=== PATIENT | female | born 1975 | race Hispanic/Latino ===

== ENCOUNTER 2018-08-20 13:43 | Observation (INO) | payer OTHER ==
[~2018-08-20] VITALS: Ht 160 cm; Wt 82.1 kg
[2018-08-20] MEDS ORDERED: MORPHINE SULFATE 2 MG/ML SYR IV STA (14:52)
[2018-08-20] MEDS ORDERED: ONDANSETRON HCL INJ 2 MG/ML VIAL IV STA (14:52)
[2018-08-20] MEDS ORDERED: SODIUM CHLORIDE 0.9% 1000ML 1,000 ML IV SCH (15:00)
[2018-08-20 15:28] LABS: BASOPHILS % 0.2 % (0.0-1.0); EOSINOPHILS % 0.3 % (0.0-6.0); HEMATOCRIT 34.8 % (34.2-44.1); HEMOGLOBIN 11.2 g/dL (12.0-16.0); LYMPHOCYTES # (AUTO) 1.2 (1.0-3.2); LYMPHOCYTES % 10.4 % (18.0-39.1); MEAN CORPUSCULAR HEMOGLOBIN 27.9 pg (28-32); MEAN CORPUSCULAR HGB CONC 32.2 g/dL (31-35); MEAN CORPUSCULAR VOLUME 86.8 fL (81-99); MONOCYTES # (AUTO) 0.9 (0.2-0.8); MONOCYTES % 7.3 % (4.4-11.3); NEUTROPHILS # (AUTO) 9.6 (2.1-6.9); NEUTROPHILS % 81.5 % (38.7-80.0); PLATELET COUNT 211 x10e3/uL (140-360); RED BLOOD COUNT 4.01 x10e6/uL (3.6-5.1); RED CELL DISTRIBUTION WIDTH 14.1 % (11.7-14.4)
[2018-08-20 15:32] LABS: CLARITY,URINE SL CLOUDY (CLEAR); COLOR,URINE YELLOW (YELLOW); KETONES,URINE 1+ (NEGATIVE); LEUKOCYTE ESTERASE ,URINE NEGATIVE (NEGATIVE); NITRITE,URINE NEGATIVE (NEGATIVE); PROTEIN,URINE DIPSTICK NEGATIVE (NEGATIVE)
[2018-08-20 15:33] LABS: BILIRUBIN,URINE NEGATIVE (NEGATIVE); URINE UROBILINOGEN 0.2 mg/dL (0.2 - 1)
[2018-08-20 15:41] LABS: BACTERIA,URINE MODERATE /HPF; EPITHELIAL CELLS,URINE MANY /LPF; TRANSITIONAL EPI CELLS,URINE MODERATE
[2018-08-20 15:46] LABS: ALBUMIN 3.9 g/dL (3.5-5.0); ALBUMIN/GLOBULIN RATIO 1.1 (0.8-2.0); ANION GAP 15.9 mmol/L (8-16); CALCIUM 9.4 mg/dL (8.4-10.2); CREATININE, SERUM 1.16 mg/dL (0.57-1.11); POTASSIUM 3.9 mmol/L (3.5-5.1)
[2018-08-20] MEDS ORDERED: ONDANSETRON HCL INJ 2 MG/ML VIAL IV PRN (16:00)
[2018-08-20] MEDS ORDERED: MORPHINE SULFATE 2 MG/ML SYR IV PRN (16:00)
[2018-08-20] MEDS ORDERED: HYDROMORPHONE 1MG/1ML INJ IV PRN (16:00)
[2018-08-20] MEDS ORDERED: MORPHINE SULFATE INJ 4 MG/ML INJ IV PRN (16:15)
[2018-08-20] MEDS: HYDROMORPHONE 2MG/ML 2 MG/ML ML IV PRN ×3 (16:50→21:36)
[2018-08-20] MEDS: CEFTRIAXONE SOD 1 GM VIAL IV SCH (16:51)
[2018-08-20] MEDS ORDERED: NORCO 7.5-3251 EACH PO (16:55)
[2018-08-20] MEDS ORDERED: DOXYCYCLINE HY100 MG PO (16:55)
[2018-08-20] MEDS ORDERED: ZYRTEC10 M3 PO (16:55)
[2018-08-20] MEDS ORDERED: ZOFRAN ODT4 MG PO (16:55)
--- NOTE | 2018-08-20 16:56 | Diagnostic Imaging Report ---
Exam: KUB. Clinical History: Kidney stone. Comparison: <None.> Findings: There is a 7 mm calcification projecting over the left upper psoas muscle. Bowel gas obscures visualization of the left kidney. No evidence of right renal stone. Frontal view of the abdomen demonstrates a nonobstructive bowel gas pattern. Moderate amount of stool in the proximal colon. No acute bony findings. Impression: Possible 7 mm left proximal ureteral stone. Signed by: Dr. Alonzo Flowers MD on 08/20/2018 4:52 PM
[2018-08-20] MEDS: SODIUM CHLORIDE 0.9% 1000ML 1,000 ML IV SCH ×2 (18:07→21:19)
[2018-08-20] MEDS ORDERED: PANTOPRAZOLE 40 MG 10ML VIAL IV STA (18:13)
[2018-08-20] MEDS ORDERED: LORAZEPAM 1 MG TAB PO ONE (18:15)
[2018-08-20] MEDS ORDERED: MIDAZOLAM HCL 2 MG/2 ML VIAL ONE (19:22)
[2018-08-20] MEDS ORDERED: FENTANYL CITRATE/PF 100MCG/2 ML INJ ONE (19:22)
[2018-08-20] MEDS ORDERED: DIPHENHYDRAMINE HCL INJ 50 MG/ML VIAL ONE (19:41)
[2018-08-20] MEDS ORDERED: LIDOCAINE HCL 2% LOCAL INJ 5 ML SDV VIAL INJ ONE (19:41)
[2018-08-20] MEDS ORDERED: PROPOFOL IV EMULSION 10 MG/ML 20 ML VIAL ONE (19:41)
[2018-08-20] MEDS ORDERED: FAMOTIDINE 20 MG/2 ML VIAL IV ONE (19:41)
[2018-08-20] MEDS ORDERED: SEVOFLURANE INHAL SOLN 250 ML PEN BTL ONE (19:41)
[2018-08-20] MEDS ORDERED: DEXAMETHASONE SOD PHOS INJ 4 MG/ML VIAL ONE (19:41)
[2018-08-20] MEDS ORDERED: ONDANSETRON HCL INJ 2 MG/ML VIAL ONE (19:41)
[2018-08-20 21:30] VITALS: BP 112/69
[2018-08-20 21:53] VITALS: BP 102/64
[2018-08-20 21:55] VITALS: BP 102/64
[2018-08-21] VITALS: BP 104/55
[2018-08-21] MEDS: HYDROMORPHONE 2MG/ML 2 MG/ML ML IV PRN ×3 (00:45→06:45)
[2018-08-21] MEDS: CEFTRIAXONE SOD 1 GM VIAL IV SCH ×2 (03:39→16:40)
[2018-08-21 04:00] VITALS: BP 97/80
[2018-08-21 07:50] VITALS: BP 105/60
[2018-08-21] MEDS ORDERED: IOPAMIDOL 610MG/1ML 300 MG/ML VIAL IV ONE (08:33)
[2018-08-21 08:34] VITALS: BP 105/60
[2018-08-21] MEDS ORDERED: MEPERIDINE HCL INJ 50 MG/ML INJ ONE (09:58)
[2018-08-21 12:29] VITALS: BP 111/62
[2018-08-21] MEDS ORDERED: PHENAZOPYRIDINE HCL 100 MG TAB PO SCH (13:00)
[2018-08-21] MEDS ORDERED: OXYBUTYNIN CHLORIDE 5 MG TAB PO SCH (15:00)
--- NOTE | 2018-08-21 15:38 | Discharge Summary ---
ORANGE PICKING SUPERVISOR: Dr. Nicolas Adams. FINAL DIAGNOSES: 1. Left-sided renal colic associated with left large kidney, obstructive kidney stone 7 mm. 2. Status post left ureteral stent placement done by Dr. Nicolas Adams. SUMMARY: Patient is a 42-year-old female with left ureteral stone, left hydronephrosis, status post left ureteral stent placement and left ESWL. The patient is stable. She is comfortable. The patient has been cleared by Dr. Adams for discharge home. She will be discharged home with Tylenol No. 3 as needed for pain, Ditropan 5 mg t.i.d. and Pyridium 200 mg daily as needed for discomfort. The patient is otherwise stable. She may resume her home medications. Patient is to be followed by Dr. Nicolas Adams for any adjustment of medication and also for future stent removal. Patient stable, discharged home today when cleared. Job#: [id number] EV
[2018-08-21 17:09] VITALS: BP 106/53
[2018-08-21] MEDS ORDERED: TYLENOL WITH C1 EACH PO (17:58)
[2018-08-21] MEDS ORDERED: DITROPAN XL5 MG PO (17:59)
[2018-08-21] MEDS ORDERED: PYRIDIUM100 MG PO (18:00)
--- OUTSIDE RECORDS SUMMARY | 2018-08-25 13:05 | XMS REPORT | Clinical Summary ---
Author Author [facility] Organization [facility] Address Unknown Phone Unavailable Care Team Providers Care Business Intelligence Architect Name Role Phone Asked, No Pcp PCP Unavailable Allergies Active Allergy Reactions Severity Noted Date Comments No Known Drug Allergies 10/14/2017 Current Medications Prescription Sig. Disp. Refills Start End Date Status Date clotrimazole-betamethason Apply 1 application Active e (LOTRISONE) 1-0.05 % topically 2 (two) times a cream day. Apply to the affected and surrounding areas of skin acetaminophen (TYLENOL) Take 325 mg by mouth Active 325 MG tablet every 6 (six) hours as needed for fever. CHOLECALCIFEROL, VITAMIN Take by mouth. Active D3, (VITAMIN D3 ORAL) CETIRIZINE HCL (ZYRTEC Take by mouth. Active ORAL) Active Problems Not on file Encounters Date Type Specialty Care Team Description 10/30/2017 Office Visit Obstetrics and Gynecology Eboni Don MD Right lower quadrant abdominal pain (Primary Dx) 10/30/2017 Ancillary Obstetrics and Gynecology Eboni Don MD Orders 10/30/2017 Ancillary Obstetrics and Gynecology Eboni Don MD Orders 2017 Transcribe Obstetrics and Gynecology Eboni Don MD Pelvic pain (Primary Dx) Orders 10/14/2017 Abstract Obstetrics and Gynecology Eboni Don MD after 08/19/2017 Family History Medical History Relation Name Comments Uterine cancer Cousin Diabetes Father Cancer Sister Relation Name Status Comments Cousin Father Sister dermoid cyst cancer Social History Tobacco Use Types Packs/Day Years Used Date Never Smoker Smokeless Tobacco: Never Used Alcohol Use Drinks/Week oz/Week Comments No socially Sex Assigned at Date Recorded Not on file Last Filed Vital Signs Vital Sign Reading Time Taken Blood Pressure 123/74 10/30/2017 8:50 AM UTILIZATION MANAGEMENT UM NURSE Pulse 73 10/30/2017 8:50 AM UTILIZATION MANAGEMENT UM NURSE Temperature 37.1 C (98.7 F) 10/30/2017 8:50 AM UTILIZATION MANAGEMENT UM NURSE Respiratory Rate - - Oxygen Saturation - - Inhaled Oxygen - - Concentration Weight 81.6 kg (180 lb) 10/30/2017 8:50 AM UTILIZATION MANAGEMENT UM NURSE Height 162.6 cm (5' 4") 10/30/2017 8:50 AM UTILIZATION MANAGEMENT UM NURSE Body Mass Index 30.9 10/30/2017 8:50 AM UTILIZATION MANAGEMENT UM NURSE Plan of Treatment Health Maintenance Due Date Last Done Comments CERVICAL CANCER SCREENING 08/10/2017 08/10/2014 INFLUENZA VACCINE 06/10/2018 Procedures Procedure Name Priority Date/Time Associated Diagnosis Comments US PELVIC TRANSVAGINAL Routine 10/30/2017 Pelvic pain Results for this 8:46 AM UTILIZATION MANAGEMENT UM NURSE procedure are in the results section. after 08/19/2017 Results * US Pelvic Transvaginal (10/30/2017 8:46 AM) Narrative Performed At [facility] Uterus: 10cm Endometrium: 1.25mm Right Ovary: 2.5cm Left Ovary: 2.2cm Bilateral adnexa normal. Performing Organization Address [facility] Phone Number [facility] [address] [place] [address] after 08/19/2017 Insurance Payer Benefit Subscriber ID Type Phone Address Plan / Group DAVID HERNANDEZ OPEN xxxxxxxxxxx O ACCESS/NET WORK
--- OUTSIDE RECORDS SUMMARY | 2018-08-25 13:12 | XMS REPORT | Clinical Summary ---
Author Author [facility] Organization [facility] Address Unknown Phone Unavailable Care Team Providers Care Feltmaker Name Role Phone Asked, No Pcp PCP [...] Taken Blood Pressure 123/74 10/30/2017 8:50 AM VERIFICATION MANAGER Pulse 73 10/30/2017 8:50 AM VERIFICATION MANAGER Temperature 37.1 C (98.7 F) 10/30/2017 8:50 AM VERIFICATION MANAGER Respiratory Rate - - Oxygen Saturation - - Inhaled Oxygen - - Concentration Weight 81.6 kg (180 lb) 10/30/2017 8:50 AM VERIFICATION MANAGER Height 162.6 cm (5' 4") 10/30/2017 8:50 AM VERIFICATION MANAGER Body Mass Index 30.9 10/30/2017 8:50 AM VERIFICATION MANAGER Plan of Treatment Health Maintenance Due Date Last Done Comments CERVICAL CANCER SCREENING 08/10/2017 08/10/2014 INFLUENZA VACCINE 06/10/2018 Procedures Procedure Name Priority Date/Time Associated Diagnosis Comments US PELVIC TRANSVAGINAL Routine 10/30/2017 Pelvic pain Results for this 8:46 AM VERIFICATION MANAGER procedure are in the results section. after 08/19/2017 Results * US Pelvic Transvaginal (10/30/2017 8:46 AM) Narrative Performed At [facility] Uterus: 10cm Endometrium: 1.25mm Right Ovary: 2.5cm Left Ovary: 2.2cm Bilateral adnexa normal. Performing Organization Address [facility]/State[facility] Phone Number [facility] [address] [place] [address] after 08/19/2017 Insurance Payer Benefit Subscriber ID Type Phone Address Plan / Group DAVID HERNANDEZ OPEN xxxxxxxxxxx O ACCESS/NET WORK
--- NOTE | 2018-10-14 22:57 | Operative Report ---
DATE OF PROCEDURE: August 21, 2018 PREOPERATIVE DIAGNOSES 1. Left ureterolithiasis. 2. Left hydronephrosis due to stone. 3. Gross hematuria. POSTOPERATIVE DIAGNOSES 1. Left ureterolithiasis. 2. Left hydronephrosis due to stone. 3. Gross hematuria. 4. Grade 1 cystocele. 5. Grade 2 to 3 rectocele. 6. Urethral hypermobility. OPERATIONS PERFORMED: Note these were all staged procedures as part of a multi-stage, multi-step process of managing the patient's urolithiasis. 1. Left-sided extracorporeal shockwave lithotripsy (separate procedure performed for the left ureterolithiasis. 2. Cystourethroscopy with bilateral ureteral catheterization and retrograde ureteropyelography (separate procedure performed for the hematuria). 3. Interpretation of retrograde ureteropyelography. 4. Supervision of fluoroscopy. No radiologist present. 5. Cystourethroscopy with insertion of left indwelling ureteral stent (separate procedure performed to relieve the hydronephrosis). 6. Pelvic examination under anesthesia. ANESTHESIA: General. COMPLICATIONS: None. CLINICAL SUMMARY: Ailyn Carlos is a 42-year-old woman who was evaluated and found to have a stone. The patient was actually scheduled to have a procedure; however, she could not take the pain and reported to the emergency room. She was admitted via the emergency room for pain control. She is therefore brought to the operating room to relieve her pain and obstruction. She is aware of the risks of bleeding, infection, injury to adjacent structures, and need for additional procedures. She also understands that she will have a temporary indwelling ureteral stent that requires followup and removal. She understood all these risks and elected to proceed. OPERATIVE PROCEDURE IN DETAIL: Informed consent was verified. Ailyn Carlos was properly identified, taken to the operating room, placed on the lithotripsy table in supine position. Anesthesia was uneventfully begun. The patient's 8-mm left ureteral stone was localized with biplanar fluoroscopy. A total of 3000 shocks was delivered with some degree of fragmentation noted. The patient was then carefully and gently re-positioned in the dorsal lithotomy position with all pressure points well padded. Her genitalia were prepared and draped in usual sterile fashion. The 22.5-Mohawk cystoscope sheath with obturator in place was atraumatically inserted into the patient's urethra and the bladder was drained. Panendoscopy of the urinary bladder revealed no suspicious mucosal lesions. No tumors, no stones, and no diverticula. Normally positioned and configured ureteral orifices were identified. A ureteral catheter was used to cannulate each ureter and retrograde ureteropyelograms were performed. With cystoscopic and fluoroscopic guidance, a left-sided indwelling ureteral stent was then placed. It was coiled in patient's kidney as well as the patient's bladder. The retaining suture was cut short. Interpretation of retrograde ureteropyelography: Contrast was instilled in retrograde fashion bilaterally. There was a large filling defect in the left proximal ureter with proximal hydronephrosis that corresponded the stones we treated. The right side was unremarkable without any true stones visualized. Calices were sharp and delicate. Unobstructed drainage was observed on the right and the stent was in good position, coiled in patient's kidney as well as the patient's bladder at the end of the case on the left. The patient's bladder was drained. The cystoscope was withdrawn. Pelvic examination under anesthesia revealed a grade 1 cystocele, grade 2 to 3 rectocele. There was urethral hypermobility present. The patient was then uneventfully reversed from anesthesia and taken to the recovery room in stable condition. There were no complications to the procedure. She tolerated the procedure well. Plans will be to return the patient to the operating room in several weeks to remove her stent, perform left ureteroscopy and determine whether any additional treatments are needed beyond that point. Lifelong urological followup was recommended. Job#: [id number]
== END 2018-08-21 18:25 | disposition home or self-care (01) ==
LOC: ER 13:43 → ERHOLD 16:20 → IMCU 21:30
PROVIDERS: ADMIT Internal Medicine; ATTEND Internal Medicine
DX: N13.2 Hydronephrosis with renal and ureteral calculous obstruction (principal); Z87.442 Personal history of urinary calculi; Z88.6 Allergy status to analgesic agent; K21.9 Gastro-esophageal reflux disease without esophagitis; J45.909 Unspecified asthma, uncomplicated; N17.9 Acute kidney failure, unspecified; R32 Unspecified urinary incontinence; D64.9 Anemia, unspecified; R31.0 Gross hematuria; N81.10 Cystocele, unspecified; N81.6 Rectocele; N36.41 Hypermobility of urethra
CPT/HCPCS: 36415 ×2; 50590; 52332; 74018; 80053; 81001; 81025; 82948; 85025; 87086; 99284; C2617; G0378 ×2; J0696 ×2; J1100; J1170 ×2; J1200; J2001; J2175; J2250; J2270; J2405; J7030; Q9967

== ENCOUNTER → 2022-04-09 | Outpatient (CLI) | payer BC ==
[~2022-04-09] MED LIST: DITROPAN XL5 MG PO; DOXYCYCLINE HY100 MG PO; NORCO 7.5-3251 EACH PO; PYRIDIUM100 MG PO; TYLENOL WITH C1 EACH PO; ZOFRAN ODT4 MG PO; ZYRTEC10 M3 PO
== END ==
LOC: CT 11:45
PROVIDERS: ATTEND Urology
DX: N23 Unspecified renal colic (principal)
CPT/HCPCS: 36415; 74176; 81025

== ENCOUNTER → 2023-02-20 | Outpatient (CLI) | payer BC | LOC: RAD 12:23 | PROVIDERS: ATTEND Urology | DX: N20.0 Calculus of kidney (principal) | CPT/HCPCS: 74018 ==

== ENCOUNTER → 2024-07-15 | Outpatient (REF) | payer BC | LOC: RAD 11:55 | PROVIDERS: ATTEND Urology | DX: N20.0 Calculus of kidney (principal) | CPT/HCPCS: 74018; 81025 ==